=== PATIENT | male | born 1955 | race Caucasian/White ===

== ENCOUNTER 2016-12-05 02:45 | Emergency (ER) | payer MEDICAID ==
[~2016-12-05] VITALS: Ht 193 cm; Wt 72.0 kg
[~2016-12-05 02:45] MED LIST: DICY10 PO; LOMO2.5T PO; ZOFR4TAB3 SL
[2016-12-05 02:47] VITALS: BP 108/66; PULSE 102; RESP 18; TEMP 98; O2SAT 95
[2016-12-05 05:05] LABS: AUTOMATED NEUTROPHIL # 2.4 TH/MM3 (1.8-7.7); BASOPHIL % 0.9 % (0.0-2.0); EOSINOPHIL # 0.1 TH/MM3 (0-0.4); EOSINOPHIL % 1.1 % (0.0-4.0); HEMATOCRIT 45.5 % (39.0-51.0); HEMO FLAGS DIFF FINAL; LYMPH % 38.3 % (9.0-44.0); MEAN CELL VOLUME 87.6 FL (80.0-100.0); MEAN CORPUSCULAR HEMOGLOBIN 29.7 PG (27.0-34.0); MEAN CORPUSCULAR HGB CONC 33.9 % (32.0-36.0); MONO % 12.7 % (0.0-8.0); PLATELET COUNT 256 TH/MM3 (150-450); RED CELL DISTRIBUTION WIDTH 13.9 % (11.6-17.2); WHITE BLOOD COUNT 5.1 TH/MM3 (4.0-11.0)
[2016-12-05 05:14] LABS: BLOOD, URINE NEG (NEG); COMMENT (UR) CULT NOT INDICATED; CULTURE IF INDICATED CULT NOT INDICATED; GLUCOSE,URINE NEG (NEG); KETONE, URINE NEG (NEG); NITRITE,URINE NEG (NEG); URINE COLOR YELLOW (YELLW/STRAW)
[2016-12-05 05:17] LABS: ALKALINE PHOSPHATASE 62 U/L (45-117); TOTAL BILIRUBIN ADULT 0.5 MG/DL (0.2-1.0)
[2016-12-05 05:40] LABS: ALT (GPT) 252 U/L (12-78); ANION GAP 6 MEQ/L (5-15); AST (GOT) 123 U/L (15-37); BICARBONATE 22.8 MEQ/L (21.0-32.0); BLOOD UREA NITROGEN 14 MG/DL (7-18); CHLORIDE 107 MEQ/L (98-107); GLOMERULAR FILTRATION RATE 115 ML/MIN (>89); POTASSIUM 4.2 MEQ/L (3.5-5.1); SODIUM (NA) 136 MEQ/L (136-145)
--- NOTE | 2016-12-05 07:01 | PD ---
HPI Chief Complaint: Abdominal Pain Time Seen by Provider: 07:00 Travel History International Travel<30 days: No Contact w/Intl Traveler<30days: No Traveled to known affect area: No History of Present Illness HPI 61-year-old male came to the emergency room with history of abdominal pain. Patient was in the ER 3 weeks ago for the exact same thing. He had blood test and CAT scan done at that time. CAT scan was suggestive of questionable pancreatitis but clinical correlation was requested. Today by the time I saw him he was already protocoled for abdominal pain. Blood test results and the urine analysis was back. The only abnormal test result was his liver enzymes which was elevated. Patient pointed out to his entire abdomen saying it hurts. Interestingly he has an appointment with GI specialist tomorrow for upper and lower endoscopy. Vital signs were stable. No history of vomiting or diarrhea. Patient is on omeprazole. PFSH Past Medical History Narrative Medical List of his past medical history as reviewed from the nursing note. Hx Anticoagulant Therapy: No Asthma: Yes Anxiety: Yes Depression: Yes Cancer: Yes (Hx per pt but in remission) Cardiovascular Problems: Yes Chemotherapy: Yes (COLON 10 YRS AGO) Cerebrovascular Accident: No Diabetes: No Diminished Hearing: No GERD: Yes Glaucoma: Yes Headaches: No Hepatitis: Yes (HEP B,C, POSS A PT STATES) Musculoskeletal: Yes (CHRONIC PAIN) Psychiatric: Yes (Depression, anxiety, mood swing since a child) Respiratory: No Immunizations Current: Yes Pneumonia: Yes Schizophrenia: Yes Seizures: No Tetanus Vaccination: < 5 Years Influenza Vaccination: No Past Surgical History Abdominal Surgery: Yes (COLON) Other Surgery: Yes (COLONOSCOPY AND EGD, SKIN CA REMOVED) Social History Alcohol Use: No Tobacco Use: Yes Substance Use: No Allergies-Medications (Allergen,Severity, Reaction): Coded Allergies: Codeine (Verified Allergy, Severe, 12/05/16) Contrast Media (Verified Allergy, Severe, 12/05/16) Risperdal (Verified Allergy, Severe, 12/05/16) Talwin (Verified Allergy, Severe, 12/05/16) Comments List of his allergies reviewed from the nursing note. Reported Meds & Prescriptions Reported Meds & Active Scripts Active Bentyl (Dicyclomine HCl) 10 Mg Cap 10 Mg PO TID PRN 5 Days Lomotil (Diphenoxylate-Atropine) 2.5-0.025 Mg Tab 1 Tab PO Q6H PRN 5 Days Zofran Odt (Ondansetron Odt) 4 Mg Tab 4 Mg SL Q6HR PRN Narrative Medication List of his home medications reviewed from the nursing note. Review of Systems Except as stated in HPI: all other systems reviewed are Neg Physical Exam Narrative GENERAL: Awake, alert, anxious, moderate distress SKIN: Warm and dry. HEAD: Atraumatic. Normocephalic. EYES: Pupils equal and round. No scleral icterus. No injection or drainage. ENT: No nasal bleeding or discharge. Mucous membranes pink and moist. NECK: Trachea midline. No JVD. CARDIOVASCULAR: Regular rate and rhythm. No murmur appreciated. RESPIRATORY: No accessory muscle use. Clear to auscultation. Breath sounds equal bilaterally. GASTROINTESTINAL: Abdomen soft, non-tender, nondistended. Hepatic and splenic margins not palpable. MUSCULOSKELETAL: No obvious deformities. No clubbing. No cyanosis. No edema. NEUROLOGICAL: Awake and alert. No obvious cranial nerve deficits. Motor grossly within normal limits. Normal speech. PSYCHIATRIC: Appropriate mood and affect; insight and judgment normal. Data Data Last Documented VS Vital Signs Date Time Temp Pulse Resp B/P Pulse Ox O2 Delivery O2 Flow Rate FiO2 12/05/16 06:20 16 12/05/16 02:47 98.0 102 108/66 95 Room Air Orders Complete Blood Count With Diff (12/05/16 04:03) Comprehensive Metabolic Panel (12/05/16 04:03) Urinalysis - C+S If Indicated (12/05/16 04:03) Lipase (12/05/16 04:03) Ed Poc Ultrasound (12/05/16 ) Labs Laboratory Tests Test 12/05/16 12/05/16 04:40 04:45 White Blood Count 5.1 TH/MM3 Red Blood Count 5.20 MIL/MM3 Hemoglobin 15.4 GM/DL Hematocrit 45.5 % Mean Corpuscular Volume 87.6 FL Mean Corpuscular Hemoglobin 29.7 PG Mean Corpuscular Hemoglobin 33.9 % Concent Red Cell Distribution Width 13.9 % Platelet Count 256 TH/MM3 Mean Platelet Volume 8.1 FL Neutrophils (%) (Auto) 47.0 % Lymphocytes (%) (Auto) 38.3 % Monocytes (%) (Auto) 12.7 % Eosinophils (%) (Auto) 1.1 % Basophils (%) (Auto) 0.9 % Neutrophils # (Auto) 2.4 TH/MM3 Lymphocytes # (Auto) 2.0 TH/MM3 Monocytes # (Auto) 0.6 TH/MM3 Eosinophils # (Auto) 0.1 TH/MM3 Basophils # (Auto) 0.0 TH/MM3 CBC Comment DIFF FINAL Differential Comment Sodium Level 136 MEQ/L Potassium Level 4.2 MEQ/L Chloride Level 107 MEQ/L Carbon Dioxide Level 22.8 MEQ/L Anion Gap 6 MEQ/L Blood Urea Nitrogen 14 MG/DL Creatinine 0.70 MG/DL Estimat Glomerular Filtration 115 ML/MIN Rate Random Glucose 101 MG/DL Calcium Level 8.7 MG/DL Total Bilirubin 0.5 MG/DL Aspartate Amino Transf 123 U/L (AST/SGOT) Alanine Aminotransferase 252 U/L (ALT/SGPT) Alkaline Phosphatase 62 U/L Total Protein 8.2 GM/DL Albumin 3.7 GM/DL Lipase 221 U/L Urine Color YELLOW Urine Turbidity CLEAR Urine pH 6.0 Urine Specific Crawford 1.019 Urine Protein NEG mg/dL Urine Glucose (UA) NEG mg/dL Urine Ketones NEG mg/dL Urine Occult Blood NEG Urine Nitrite NEG Urine Bilirubin NEG Urine Urobilinogen LESS THAN 2.0 MG/DL Urine Leukocyte Esterase NEG Urine RBC LESS THAN 1 /hpf Urine WBC 1 /hpf Microscopic Urinalysis Comment CULT NOT INDICATED MDM Medical Decision Making Medical Screen Exam Complete: Yes Emergency Medical Condition: Yes Medical Record Reviewed: Yes Differential Diagnosis Acute pancreatitis, hepatitis, acute cholecystitis, abdominal pain NOS, acute on chronic abdominal pain Narrative Course 7:30 AM patient had a CAT scan done 3 weeks ago which did not show significant abnormality except for questionable pancreatitis. His lipase was within normal limits today. Bedside ultrasound performed by me was negative for biliary calculi. Given the fact that he has an appointment with GI specialist tomorrow I'm comfortable discharging him. I've asked him to address his abnormal liver function test with the GI specialist. I will also asked him to cut down on his gabapentin consumption. Patient requested for pain medication and I let him know that under the circumstances of elevated liver function test any medications that has acetaminophen and hydrocodone base would be on advisable. Procedures Procedure Narrative Emergency department right upper quadrant ultrasound was performed with patient consent. Curvilinear probe was used in the transverse and sagittal views within the right upper quadrant revealing gallbladder without obvious wall thickening, cholecystic fluid, or cholelithiasis. EKG Prior to Arrival: No Diagnosis Primary Impression: Abdominal pain Qualified Code: R10.9 - Abdominal pain, unspecified location Additional Impressions: Liver function abnormality Chronic abdominal pain Referrals: Primary Care Physician Additional Instructions: Please follow-up with your GI specialist appointment. Please mention to him regarding your abnormal liver function test. Take your gabapentin half the prescribed amount given your elevated liver function test. Do not drink alcohol or take any medication that has Tylenol/acetaminophen in it to instructed further by a GI specialist. Med/Other Pt SpecificInfo: No Change to Meds Disposition: 01 DISCHARGE HOME Condition: Stable Ashleigh Zaidi MD Dec 05, 2016 07:01
== END 2016-12-05 08:05 | disposition home or self-care (01) ==
LOC: NEPC 02:45
DX: R10.9 Unspecified abdominal pain (principal); G89.29 Other chronic pain
CPT/HCPCS: 80053; 81001; 83690; 85025; 99284

== ENCOUNTER 2017-10-04 13:49 | Emergency (ER) | payer MEDICAID ==
[~2017-10-04] VITALS: Ht 182.9 cm; Wt 100.0 kg
[2017-10-04 14:35] VITALS: BP 116/66; PULSE 64; RESP 20; TEMP 98; O2SAT 99
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
[2017-10-04] MEDS ORDERED: TETANUS/DIPHTHERIA TOXOID ADULT 0.5 ML VIAL IM ONE (15:45)
[2017-10-04] MEDS ORDERED: ACETAMINOPHEN 325 MG TAB PO ONE (16:00)
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
[2017-10-04 17:41] VITALS: BP 138/70
== END 2017-10-04 18:23 ==
LOC: NEDAMB 13:49
DX: S00.432A Contusion of left ear, initial encounter (principal); S50.819A Abrasion of unspecified forearm, initial encounter; S00.511A Abrasion of lip, initial encounter; S00.81XA Abrasion of other part of head, initial encounter; R53.83 Other fatigue; J44.9 Chronic obstructive pulmonary disease, unspecified; J45.909 Unspecified asthma, uncomplicated; K21.9 Gastro-esophageal reflux disease without esophagitis; Y04.2XXA Assault by strike against or bumped into by another person, initial encounter
CPT/HCPCS: 70110; 70150; 70450; 70486; 71020; 90471

== ENCOUNTER 2017-10-05 22:10 | Emergency (ER) | payer MEDICAID ==
[~2017-10-05] VITALS: Ht 180.3 cm; Wt 70.0 kg
[2017-10-05 22:22] VITALS: BP 145/85; PULSE 95; RESP 16; TEMP 98.7; O2SAT 99
[2017-10-05] MEDS ORDERED: ONDANSETRON HCL 4 MG/2 ML VIAL IV ONE (22:30)
[2017-10-05] MEDS ORDERED: KETOROLAC TROMETHAMINE 30 MG/ML (IVP) VIAL IVP ONE (22:30)
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
== END 2017-10-06 02:20 | disposition home or self-care (01) ==
LOC: NEPC 22:10
DX: T40.601A Poisoning by unspecified narcotics, accidental (unintentional), initial encounter (principal); Z79.899 Other long term (current) drug therapy; Z72.0 Tobacco use
CPT/HCPCS: 96374; 96375; 99284; J1885; J2405

== ENCOUNTER 2018-02-05 17:11 | Emergency (ER) | payer MEDICAID ==
[2018-02-05 17:40] VITALS: BP 135/69; PULSE 76; RESP 18; TEMP 98.1; O2SAT 99
--- NOTE | 2018-02-05 18:24 | PD ---
HPI Chief Complaint: Skin Problem Time Seen by Provider: 17:40 Travel History International Travel<30 days: No Contact w/Intl Traveler<30days: No Traveled to known affect area: No History of Present Illness HPI Patient is a 62-year-old male presenting to the emergency department for evaluation of a painful rash to his back. Patient states it started yesterday. He reports his pain is a 10 out of 10. He states his burning sensation. Symptom onset was gradual, similar severity is moderate, there are no alleviating factors. Patient denies any fevers. PFSH Past Medical History Hx Anticoagulant Therapy: No Asthma: Yes Anxiety: Yes Depression: Yes Cancer: Yes (Hx per pt but in remission) Cardiovascular Problems: Yes Chemotherapy: Yes (COLON 10 YRS AGO) Cerebrovascular Accident: No Diabetes: No Diminished Hearing: No GERD: Yes Glaucoma: Yes Headaches: No Hepatitis: Yes (HEP B,C, POSS A PT STATES) Musculoskeletal: Yes (CHRONIC PAIN) Psychiatric: Yes (Depression, anxiety, mood swing since a child) Respiratory: No Immunizations Current: Yes Pneumonia: Yes Schizophrenia: Yes Seizures: No Past Surgical History Abdominal Surgery: Yes (COLON) Other Surgery: Yes (COLONOSCOPY AND EGD, SKIN CA REMOVED) Social History Alcohol Use: No Tobacco Use: Yes Substance Use: No Allergies-Medications (Allergen,Severity, Reaction): Coded Allergies: codeine (Unverified Allergy, Severe, 10/05/17) diatrizoate meglumine (Unverified Allergy, Severe, 10/05/17) gadobenic acid (Unverified Allergy, Severe, 10/05/17) gadodiamide (Unverified Allergy, Severe, 10/05/17) gadoteridol (Unverified Allergy, Severe, 10/05/17) iodixanol (Unverified Allergy, Severe, 10/05/17) iohexol (Unverified Allergy, Severe, 10/05/17) pentazocine (Unverified Allergy, Severe, 10/05/17) risperidone (Unverified Allergy, Severe, 10/05/17) Reported Meds & Prescriptions Reported Meds & Active Scripts Active Bentyl (Dicyclomine HCl) 10 Mg Cap 10 Mg PO TID PRN 5 Days Lomotil (Diphenoxylate-Atropine) 2.5-0.025 Mg Tab 1 Tab PO Q6H PRN 5 Days Zofran Odt (Ondansetron Odt) 4 Mg Tab 4 Mg SL Q6HR PRN Review of Systems Except as stated in HPI: all other systems reviewed are Neg Musculoskeletal: Positive: Pain Skin: Positive Rash Physical Exam Narrative GENERAL: Well-developed, well-nourished, alert male. Presenting in no acute distress. SKIN: Warm and dry. Vesicular rash to right lower back HEAD: Normocephalic. EYES: No scleral icterus. No injection or drainage. NECK: Supple, trachea midline. No JVD or lymphadenopathy. CARDIOVASCULAR: Regular rate RESPIRATORY: No accessory muscle use. Data Data Last Documented VS Vital Signs Date Time Temp Pulse Resp B/P (MAP) Pulse Ox O2 Delivery O2 Flow Rate FiO2 02/05/18 17:40 98.1 76 18 135/69 (91) 99 [facility] Medical Decision Making Medical Screen Exam Complete: Yes Emergency Medical Condition: Yes Interpretation(s) Vital Signs Date Time Temp Pulse Resp B/P (MAP) Pulse Ox O2 Delivery O2 Flow Rate FiO2 02/05/18 17:40 98.1 76 18 135/69 (91) 99 Differential Diagnosis Contact dermatitis versus cellulitis versus abscess versus shingles versus other Narrative Course Patient is a 62-year-old male presenting to emergency for evaluation of a rash to his right lower back. Patient is waiting bed placement. Patient's vital signs are stable. Patient was called to be placed in a bed, he was not found in the emergency department. He left AMA Diagnosis Primary Impression: Left against medical advice Nadine Blackwell Feb 05, 2018 18:24
== END 2018-02-05 18:00 | disposition left against medical advice (07) ==
LOC: NED 17:11
DX: R21 Rash and other nonspecific skin eruption (principal)
CPT/HCPCS: 99281

== ENCOUNTER 2018-02-05 19:50 | Emergency (ER) | payer MEDICAID ==
[2018-02-05 20:19] VITALS: BP 142/65; PULSE 75; RESP 18; TEMP 98.2; O2SAT 98
--- NOTE | 2018-02-06 11:04 | PD ---
HPI Chief Complaint: Skin Problem Time Seen by Provider: 20:19 Travel History International Travel<30 days: No Contact w/Intl Traveler<30days: No Traveled to known affect area: No History of Present Illness HPI Pt is a 62-year-old male presented to the emergency department for evaluation of a rash on his back. Patient states the rash started 2 days ago, he states is painful and burning. He rates his pain 10 out of 10. Symptom onset was gradual, symptom severity is moderate to severe. There are no alleviating factors. There are no exacerbating factors. Patient denies any fevers, chills , nausea, vomiting, chest pain or shortness of breath. He denies any new detergents, lotions, soaps. PFSH Past Medical History Hx Anticoagulant Therapy: No Asthma: Yes Anxiety: Yes Depression: Yes Cancer: Yes (Hx per pt but in remission) Cardiovascular Problems: Yes Chemotherapy: Yes (COLON 10 YRS AGO) Cerebrovascular Accident: No Diabetes: No Diminished Hearing: No GERD: Yes Glaucoma: Yes Headaches: No Hepatitis: Yes (HEP B,C, POSS A PT STATES) Musculoskeletal: Yes (CHRONIC PAIN) Psychiatric: Yes (Depression, anxiety, mood swing since a child) Respiratory: No Immunizations Current: Yes Pneumonia: Yes Schizophrenia: Yes Seizures: No Past Surgical History Abdominal Surgery: Yes (COLON) Other Surgery: Yes (COLONOSCOPY AND EGD, SKIN CA REMOVED) Social History Alcohol Use: No Tobacco Use: Yes Substance Use: No Allergies-Medications (Allergen,Severity, Reaction): Coded Allergies: codeine (Unverified Allergy, Severe, 10/05/17) diatrizoate meglumine (Unverified Allergy, Severe, 10/05/17) gadobenic acid (Unverified Allergy, Severe, 10/05/17) gadodiamide (Unverified Allergy, Severe, 10/05/17) gadoteridol (Unverified Allergy, Severe, 10/05/17) iodixanol (Unverified Allergy, Severe, 10/05/17) iohexol (Unverified Allergy, Severe, 10/05/17) pentazocine (Unverified Allergy, Severe, 10/05/17) risperidone (Unverified Allergy, Severe, 10/05/17) Reported Meds & Prescriptions Reported Meds & Active Scripts Active Bentyl (Dicyclomine HCl) 10 Mg Cap 10 Mg PO TID PRN 5 Days Lomotil (Diphenoxylate-Atropine) 2.5-0.025 Mg Tab 1 Tab PO Q6H PRN 5 Days Zofran Odt (Ondansetron Odt) 4 Mg Tab 4 Mg SL Q6HR PRN Review of Systems Except as stated in HPI: all other systems reviewed are Neg Musculoskeletal: Positive: Pain Skin: Positive Rash Physical Exam Narrative GENERAL: Well-developed, well-nourished, alert male. Presenting in no acute distress. SKIN: Warm and dry. HEAD: Normocephalic. EYES: No scleral icterus. No injection or drainage. NECK: Supple, trachea midline. No JVD or lymphadenopathy. CARDIOVASCULAR: Regular rate RESPIRATORY: No accessory muscle use. Data Data Last Documented VS Vital Signs Date Time Temp Pulse Resp B/P (MAP) Pulse Ox O2 Delivery O2 Flow Rate FiO2 02/05/18 20:19 98.2 75 18 142/65 (90) [address] [facility] Medical Decision Making Medical Screen Exam Complete: Yes Emergency Medical Condition: Yes Interpretation(s) Vital Signs Date Time Temp Pulse Resp B/P (MAP) Pulse Ox O2 Delivery O2 Flow Rate FiO2 02/05/18 20:19 98.2 75 18 142/65 (90) 98 Differential Diagnosis Contact dermatitis versus tinea versus zoster versus other Narrative Course Patient is a 62-year-old male presenting for evaluation of a rash to his back. Patient's vital signs are stable. He is awaiting bed placement. Patient was called be placed in a bed, he was no longer in the emergency department, patient left AMA. Diagnosis Primary Impression: Left against medical advice Disposition: 07 LEFT WITHOUT BEING SEEN Nadine Blackwell Feb 06, 2018 11:04
== END 2018-02-05 22:13 | disposition left against medical advice (07) ==
LOC: NED 19:50
DX: R21 Rash and other nonspecific skin eruption (principal)
CPT/HCPCS: 99281